=== PATIENT | male | born 1965 | race Caucasian/White ===

== ENCOUNTER 2018-05-11 17:46 | Emergency (ER) | payer BC, OTHER ==
[~2018-05-11] VITALS: Ht 175.3 cm; Wt 77.1 kg
[~2018-05-11 17:46] MED LIST: CIPR500T86 PO; LISI-414 PO; OMEG300C PO; TRAM50TA PO; TURM500C9 PO
[2018-05-11 18:23] VITALS: BP 163/114
--- NOTE | 2018-05-11 18:24 | NUR ---
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 NO DISTRESS NOTED.
[2018-05-11 19:15] VITALS: BP 156/112
[2018-05-11] MEDS ORDERED: TORADOL IV STA (19:18)
[2018-05-11] MEDS ORDERED: ZOFRAN ODT SL STA ×2 (19:18→22:30)
[2018-05-11] MEDS ORDERED: MORPHINE SULFATE IV STA (19:18)
--- NOTE | 2018-05-11 19:25 | PCM.EKG ---
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
[2018-05-11] MEDS ORDERED: MORPHINE SULFATE ONE (19:27)
[2018-05-11] MEDS ORDERED: TORADOL ONE (19:27)
[2018-05-11] MEDS ORDERED: ZOFRAN ODT ONE ×2 (19:28→22:31)
[2018-05-11 19:31] LABS: BASOPHIL % 0.1 % (0.0-0.2); EOSINOPHIL # 0.1 10^3/uL (0.0-0.2); EOSINOPHIL % 0.9 % (0.0-5.0); HEMOGLOBIN 16.1 g/dL (13.9-16.3); LYMPHOCYTES # 2.6 10^3/uL (1.0-4.8); LYMPHOCYTES % 28.9 % (24.0-44.0); MEAN CELL HGB 30.2 pg (26-34); MEAN CELL HGB CONCENTRATION 35.4 g/dL (33-37); MEAN CORP VOLUME 85.4 fL (78-100); MEAN PLATELET VOLUME 10.3 fL (7.8-11.0); MONOCYTES % 11.3 % (5.0-12.0); NEUTROPHIL # 5.3 10^3/uL (1.8-7.7); NEUTROPHILS % 58.6 % (41.0-85.0); RED CELL DISTRIBUTION WIDTH 13.1 % (11.5-14.5)
--- NOTE | 2018-05-11 19:38 | ER.PDOC ---
General Chief Complaint: Trauma Stated Complaint: RIB INJURY Time seen by MD: 19:33 Source: patient Exam Limitations: no limitations History of Present Illness Timing/Duration: 4-6 hours [address]: work Context: blow Location of pain/injury: chest, low back Quality/Severity: moderate Allergies: Coded Allergies: droperidol (Verified Allergy, Severe, STROKE, HTN, 05/24/14) hydrocodone (Verified Allergy, Severe, NAUSEA, VOMITING, 05/24/14) promethazine (Verified Allergy, Severe, STROKE, HTN, 05/24/14) tramadol (Verified Allergy, Unknown, NAUSEA,VOMITING, 05/24/14) Uncoded Allergies: CODIENE (Allergy, Severe, NAUSEA,VOMITING, 05/24/14) Home Meds Active Scripts Ciprofloxacin Hcl (CIPRO) 500 Mg Tablet, 500 MG PO BID, #20 Prov:AMIRA ANDREWS MD 09/11/14 Reported Medications [place]-3 Fatty Acids (FISH OIL) 300 Mg Capsule, 300 MG PO DAILY, CAPSULE 05/24/14 Turmeric Root Extract (TURMERIC) 500 Mg Capsule, 500 MG PO DAILY, CAPSULE 05/24/14 Lisinopril (LISINOPRIL) 5 Mg Tablet, 5 MG PO DAILY, TABLET 05/24/14 Past Medical History Medical History: no pertinent history Surgical History: cholecystectomy Social History Smoking: non-smoker Alcohol Use: occassionally Drug Use: none Reviewed Nursing Reviewed: Vital Signs, Abn. 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 (05/11/18 19:15) Helicobacter Pylori (05/11/18 19:15) D-Dimer (05/11/18 19:15) Ekg-Routine (05/11/18 19:15) Ketorolac Tromethamine (Toradol) (05/11/18 19:18) Morphine Sulfate (Morphine Sulfate) (05/11/18 19:18) Ondansetron (Zofran Odt) (05/11/18 19:18) Ketorolac Tromethamine (Toradol) (05/11/18 19:27) Morphine Sulfate (Morphine Sulfate) (05/11/18 19:27) Ondansetron (Zofran Odt) (05/11/18 19:28) Urinalysis (05/11/18 19:33) Amylase (05/11/18 19:33) Lipase (05/11/18 19:33) 0.9 % Sodium Chloride (Ns 1000ml) (05/11/18 20:02) Ct Abd/Pelvis Wo Iv Contrast (05/11/18 20:04) Fentanyl Citrate/Pf (Sublimaze) (05/11/18 21:20) Fentanyl Citrate/Pf (Sublimaze) (05/11/18 21:36) Vital Signs Date Time Temp Pulse Resp B/P (MAP) Pulse Ox O2 Delivery O2 Flow Rate FiO2 05/11/18 18:23 98.0 93 20 163/114 (130) 97 Room Air 98.0 05/11/18 18:20 20 05/11/18 18:18 98.0 93 20 97 Room Air 98.0 05/11/18 18:18 98.0 93 20 98.0 Administered Medications Medications (Trade) Dose Ordered Sig/Jerod Route PRN Reason Start Time Stop Time Status Last Admin Dose Admin Fentanyl Citrate (Sublimaze) 100 mcg STAT STAT IV 05/11/18 21:20 05/11/18 21:22 DC 05/11/18 21:55 100 MCG Ketorolac Tromethamine (Toradol) 30 mg STAT STAT IV 05/11/18 19:18 05/11/18 19:21 DC 05/11/18 19:30 30 MG Morphine Sulfate (Morphine Sulfate) 2 mg STAT STAT IV 05/11/18 19:18 05/11/18 19:21 DC 05/11/18 19:30 2 MG Ondansetron HCl (Zofran Odt) 4 mg STAT STAT SL 05/11/18 19:18 05/11/18 19:21 DC 05/11/18 19:30 4 MG Laboratory Tests Test 05/11/18 18:55 05/11/18 20:25 White Blood Count 9.0 10^3/uL (4.5-11.0) Red Blood Count 5.33 10^6/uL (4.50-5.90) Hemoglobin 16.1 g/dL (13.9-16.3) Hematocrit 45.5 % (37.0-53.0) Mean Corpuscular Volume 85.4 fL (78-100) Mean Corpuscular Hemoglobin 30.2 pg (26-34) Mean Corpuscular Hemoglobin Concent 35.4 g/dL (33-37) Red Cell Distribution Width 13.1 % (11.5-14.5) Platelet Count 209 10^3/uL (150-400) Mean Platelet Volume 10.3 fL (7.8-11.0) Neutrophils (%) (Auto) 58.6 % (41.0-85.0) Lymphocytes (%) (Auto) 28.9 % (24.0-44.0) Monocytes (%) (Auto) 11.3 % (5.0-12.0) Neutrophils # (Auto) 5.3 10^3/uL (1.8-7.7) Lymphocytes # (Auto) 2.6 10^3/uL (1.0-4.8) Monocytes # (Auto) 1.0 10^3/uL (0.3-0.8) H Absolute Immature Granulocyte (auto 0.02 10^3 u/L (0-2) Eosinophils % 0.9 % (0.0-5.0) Basophils % 0.1 % (0.0-0.2) Basophils # 0.0 10^3/uL (0.0-0.1) Eosinophil Count 0.1 10^3/uL (0.0-0.2) Prothrombin Time 10.4 SEC (9.8-11.9) Prothrombin Time INR (Non-Therap) 1.0 PTT 25.0 SEC (24.67-30.72) D-Dimer 0.19 mg/L (0.19-0.49) Sodium Level 143 mmol/L (132-145) Potassium Level 3.4 mmol/L (3.6-5.2) L Chloride Level 105.0 mmol/L (96-109) Carbon Dioxide Level 25.6 mmol/L (20.0-32) Anion Gap 15.8 Blood Urea Nitrogen 10 mg/dL (7-18) Creatinine 0.92 mg/dL (0.59-1.40) Estimated GFR () 103.7 (>/=60) BUN/Creatinine Ratio 10.0 Glucose Level 85 mg/dL (70-110) Calcium Level 8.9 mg/dL (8.4-10.5) Total Bilirubin 1.0 mg/dL (0.2-1.0) Aspartate Amino Transferase (AST) 21 U/L (0-35) Alanine Aminotransferase (ALT) 36 U/L (12-78) Alkaline Phosphatase 77 U/L (50-136) Total Creatine Kinase 147 U/L (39-308) Troponin I < 0.02 ng/mL (0.00-0.05) Pro-B-Type Natriuretic Peptide 5 pg/mL (0-125) Total Protein 7.5 g/dL (6.4-8.2) Albumin 4.0 g/dL (3.4-5.0) Globulin 3.5 Amylase Level 52 U/L (25-115) Lipase 143 U/L (114-286) Percent Immature Gran (Cell Imm) 0.20 % (0.00-0.50) Helicobacter pylori Screen NEGATIVE (NEGATIVE) Urine Collection Type VOID Urine Color YELLOW (YELLOW) Urine Appearance CLEAR (CLEAR) Urine Bilirubin NEGATIVE MG/DL (NEGATIVE) Urine Ketones NEGATIVE (NEGATIVE) Urine Specific [place] 1.015 (1.005-1.035) Urine pH 6 (5.0-6.0) Urine Protein NEGATIVE (NEGATIVE) Urine Urobilinogen NORMAL (NEGATIVE) Urine Nitrate NEGATIVE (NEGATAIVE) Urine Leukocyte Esterase NEGATIVE (NEGATIVE) Urine Blood NEGATIVE (NEGATIVE) Urine Glucose NORMAL (NEGATIVE) EKG/XRAY/CT/US EKG: NSR, no ST T wave changes CT Comments: NAD Departure Time of Disposition: 20:33 Disposition: 01 HOME, SELF-CARE Impression: Primary Impression: Multiple contusions of trunk Condition: Improved Referrals: OLMAN SCOTT MD (PCP) PRIMARY CARE PROVIDER Duration or Time Spent with Pa: 3 HRS EMILY JONES MD May 11, 2018 19:38
[2018-05-11 20:01] LABS: ALANINE AMINOTRANSFERASE(ML) 36 U/L (12-78); ALKALINE PHOSPHATASE 77 U/L (50-136); ASPARTATE AMINO TRANSFERASE 21 U/L (0-35); CALCIUM 8.9 mg/dL (8.4-10.5); CARBON DIOXIDE 25.6 mmol/L (20.0-32); GLUCOSE 85 mg/dL (70-110)
[2018-05-11] MEDS ORDERED: NS 1000ML 1,000 ML ONE (20:02)
[2018-05-11 20:15] VITALS: BP 166/113
[2018-05-11 20:36] LABS: BILIRUBIN,URINE NEGATIVE (NEGATIVE); UROBILINOGEN,URINE NORMAL (NEGATIVE)
[2018-05-11 20:40] LABS: APPEARANCE,URINE CLEAR (CLEAR); UA COLOR YELLOW (YELLOW)
[2018-05-11 21:15] VITALS: BP_SYST 143; BP_SYST 159; BP_DIAS 101; BP_DIAS 92
--- NOTE | 2018-05-11 21:17 | DIREP ---
PROCEDURE:CT CHEST ABDOMEN PELVIS W/O COMPARISON:CT, CT ABD/PELVIS W/O, 11/19/2015, 03:51 PM. INDICATIONS:blunt trauma TECHNIQUE:Axial images were obtained through the chest, abdomen and pelvis without the administration IV of contrast. No oral contrast was administered. Sagittal and coronal reconstructions were performed from source images. FINDINGS: LUNGS/PLEURA:Bibasilar dependent atelectatic change. No focal consolidation, pleural effusion, or pneumothorax. CARDIAC:Heart size within normal limits. No pericardial effusion. MEDIASTINUM/IRENE:Normal. No mass or adenopathy. CHEST WALL:Normal. No mass or axillary adenopathy. LIVER:Normal. No significant liver lesions are identified. BILIARY:Status post cholecystectomy. No biliary ductal dilatation. PANCREAS:Normal. No lesion, fluid collection, ductal dilatation, or atrophy. SPLEEN:Normal. No enlargement or focal lesion. ADRENALS:Normal. No mass or enlargement. URINARY TRACT:2 mm right lower pole nonobstructing calculus. No hydronephrosis or ureteral calculi. Urinary bladder within normal limits. AORTA/VASCULAR:Limited without IV contrast. No aortic aneurysmal dilatation. RETROPERITONEUM:Normal. No mass or adenopathy. BOWEL/MESENTERY:No free air. Lack of oral contrast limits evaluation of the bowel structures. No small bowel dilatation seen to suggest obstruction. Appendix within normal limits. ABDOMINAL WALL:Calcified granulomas within the posterior subcutaneous tissues. No mass or hernia. PELVIC ORGANS:Normal. No visible mass. Pelvic organs appropriate for patient age. BONES:Degenerative change throughout the thoracic and lumbar vertebra. No evidence of acute osseous abnormality. OTHER:Negative. CONCLUSION: 1. No focal consolidation, pleural effusion, or pneumothorax. 2. Nonobstructing right renal calculus. No hydronephrosis of either kidney. 3. No bowel obstruction. Appendix within normal limits. 4. Additional findings as described. Dictated by: Robles Mcgee MD on 05/11/2018 at 09:02 PM
[2018-05-11] MEDS ORDERED: SUBLIMAZE IV STA (21:20)
[2018-05-11] MEDS ORDERED: SUBLIMAZE ONE (21:36)
[2018-05-11 22:15] VITALS: BP 144/98
[2018-05-12 02:49] VITALS: BP 144/98
== END 2018-05-11 22:33 | disposition home or self-care (01) ==
LOC: ER 17:46
DX: S20.20XA Contusion of thorax, unspecified, initial encounter (principal); S30.0XXA Contusion of lower back and pelvis, initial encounter; Z79.899 Other long term (current) drug therapy; Z88.5 Allergy status to narcotic agent; Z88.8 Allergy status to other drugs, medicaments and biological substances; Z90.49 Acquired absence of other specified parts of digestive tract; W55.22XA Struck by cow, initial encounter; Y93.89 Activity, other specified; Y92.69 Other specified industrial and construction area as the place of occurrence of the external cause; Y99.0 Civilian activity done for income or pay
CPT/HCPCS: 36415; 74176; 80053; 81002; 82150; 82550; 83690; 83880; 84484; 85025; 85379; 85610; 85730; 86677; 93005; 96374; 96375; 99285; J1885; J2270; J3010; J7030; Q0162 ×2